=== PATIENT | male | born 1975 ===

== ENCOUNTER 2017-09-22 12:10 | Emergency (ER) | payer SELFPAY ==
[2017-09-22] MEDS ORDERED: ISOVUE-370 76%-LOCM 1 ML ONE (13:02)
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
== END 2017-09-22 13:27 | disposition home or self-care (01) ==
LOC: ERS 12:10
DX: M54.6 Pain in thoracic spine (principal); I10 Essential (primary) hypertension; F17.210 Nicotine dependence, cigarettes, uncomplicated; Z79.899 Other long term (current) drug therapy; V43.52XA Car driver injured in collision with other type car in traffic accident, initial encounter
CPT/HCPCS: 71260; 72125; 74177